=== PATIENT | male | born 1960 | race Caucasian/White ===

== ENCOUNTER 2017-10-04 15:19 | Inpatient (IN) | payer OTHER ==
[~2017-10-04] VITALS: Ht 175.3 cm; Wt 81.4 kg
[~2017-10-04 15:19] MED LIST: CIAL20TA PO; CYCL5TAB PO; IBUP-232 PO; LIDOCAINE HCL 1% PF 5 ML SYRINGE OTHER ONE; LISI2.5T3 PO; NEUR600T PO; PROPOFOL 200 MG/20 ML AMP IV ONE; RANI150 PO; ROCURONIUM INJ 50 MG/5 ML SYRINGE IV PUSH ONE; SUCCINYLCHOLINE CHLORIDE 200 MG/10 ML VIAL IV ONE; XANA1TAB2 PO
[2017-10-04] MEDS ORDERED: SODIUM CHLORIDE 0.9% FLUSH 10 ML FLUSH IV FLUSH PRN (17:15)
[2017-10-04] MEDS ORDERED: ONDANSETRON HCL 4 MG/2 ML VIAL IVP PRN (17:15)
[2017-10-04] MEDS ORDERED: oxyCODONE/ACETAMINOPHEN 5 MG/325 MG TAB PO PRN (17:15)
[2017-10-04] MEDS ORDERED: Vancomycin Consult Pharmacy 1 EA OTHER SCH (17:15)
[2017-10-04] MEDS ORDERED: NALOXONE HCL 0.4 MG/ML AMP IV PUSH PRN (17:15)
[2017-10-04] MEDS ORDERED: oxyCODONE/ACETAMINOPHEN 10 MG/325 MG TAB PO PRN (17:15)
[2017-10-04] MEDS ORDERED: MAGNESIUM HYDROXIDE SUSP 30 ML CUP PO PRN (17:15)
[2017-10-04 18:00] VITALS: BP 103/61; PULSE 87; RESP 20; TEMP 98.9; O2SAT 100
[2017-10-04] MEDS: SODIUM CHLOR 0.9% 1000 ML INJ 1,000 ML IV SCH (18:00)
[2017-10-04] MEDS ORDERED: VANCOMYCIN INJ 1,000 MG in SODIUM CHLOR 0.9% 250 ML INJ 250 ML IV ONE (18:30)
[2017-10-04] MEDS ORDERED: NICOTINE 21 MG/24 HR PATCH T-DERMAL ONE (19:15)
[2017-10-04] MEDS ORDERED: cloNIDine HCL 0.1 MG TAB PO PRN (19:15)
--- NOTE | 2017-10-04 19:44 | HHI.HP ---
[facility] Ricardo Diaz MD Admission Diagnosis Diagnoses: Travel History International Travel<30 Days: No Contact w/Intl Traveler <30 Da: No Traveled to Known Affected Are: No Sepsis Criteria SIRS Criteria (2 or more): Temp > 100.9 or < 96.8, WBC > 00543, < 4000 or > 10 % bands Sepsis Criteria (SIRS+source): Infect source susp/known History of Present Illness Mr. Dalal is a 57 -year-old male. He came into the emergency department at [facility] secondary to a left arm abscess. 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 He says approximate 7 days ago he started developing a mild infection at the arm. Infection developed about 5 days after he uses a needle. Over the course of the week there has been increasing pain, swelling, erythema, induration, and for the past 2 days patient has had a fever. Fevers are as high as 102F. At baseline she has hydradenitis suppurativa which has affected his back and right groin. The area of infection does not have the hydradenitis suppurativa. No other complaints. Review of Systems Constitutional: COMPLAINS OF: Fever, Chills, Night Sweats Eyes: DENIES: Blurred vision, Diplopia, Eye inflammation, Eye pain Ears, nose, mouth, throat: DENIES: Tinnitus, Hearing loss, Vertigo, Nasal discharge Respiratory: COMPLAINS OF: Cough, DENIES: Wheezing, Shortness of breath Cardiovascular: DENIES: Chest pain, Palpitations, Syncope, Dyspnea on Exertion Gastrointestinal: DENIES: Abdominal pain, Black stools, Bloody stools, Constipation Musculoskeletal: COMPLAINS OF: Joint pain, Stiffness, Joint Swelling, DENIES: Muscle aches Integumentary: COMPLAINS OF: Abnormal pigmentation, DENIES: Nail changes, Pruritus, Rash Hematologic/lymphatic: DENIES: Bruising, Lymphadenopathy Immunologic/allergic: DENIES: Eczema, Urticaria Neurologic: DENIES: Abnormal gait, Headache, Paresthesias Psychiatric: DENIES: Anxiety, Confusion, Hallucinations Past Family Social History Past Medical History hydradenitis suppurativa Diverticulosis Hypertension Past Surgical History Left leg, groin, and scrotal surgery secondary to hydradenitis suppurativa For abdominal laparotomies secondary to diverticulitis with rupture Reported Medications Reported Meds & Active Scripts Active Reported Ibuprofen 600 Mg Tab 600 Mg PO Q6H PRN Flexeril (Cyclobenzaprine HCl) 5 Mg Tab 5 Mg PO TID Lisinopril 2.5 Mg Tab 2.5 Mg PO DAILY Xanax (Alprazolam) 1 Mg Tab 1 Mg PO Q6H PRN Allergies: Coded Allergies: Tetracyclines (Verified Allergy, Severe, 10/04/17) ciprofloxacin (Verified Allergy, Severe, 10/04/17) doxycycline (Unverified Allergy, Severe, 03/27/17) minocycline (Unverified Allergy, Severe, 03/27/17) penicillin G (Verified Allergy, Severe, 10/04/17) tigecycline (Unverified Allergy, Severe, 03/27/17) Active Ordered Medications Administered Medications Medications (Trade) Dose Ordered Sig/Dio Route PRN Reason Start Time Stop Time Status Last Admin Dose Admin Oxycodone/ Acetaminophen (Percocet 10-325 Mg) 1 tab Q6H PRN PO PAIN SCALE 6 TO 10 10/04/17 17:15 10/04/17 18:37 Family History hydradenitis suppurativa in father Myocardial infarction in mother at age 42 Social History Heroin abuse Alcohol use Marijuana use Patient smokes about 1 pack per day Physical Exam Vital Signs Vital Signs Date Time Temp Pulse Resp B/P (MAP) Pulse Ox O2 Delivery O2 Flow Rate FiO2 10/04/17 18:00 98.9 87 20 103/61 (75) 100 Physical Exam GENERAL: NAD, A&Ox3 HEAD: Normocephalic. NECK: Supple, trachea midline. No lymphadenopathy. EYES: No scleral icterus. No injection or drainage. CARDIOVASCULAR: Regular rate and rhythm without murmurs, gallops, or rubs. RESPIRATORY: Breath sounds equal bilaterally. No accessory muscle use. GASTROINTESTINAL: Abdomen soft, non-tender, nondistended. MUSCULOSKELETAL: No cyanosis, or edema. Patient is able to move the left arm without significant joint pain, no swelling limits range of motion. SKIN: Warm and dry. Large induration and erythema at left elbow and forearm. Ulcerations last necrosis at antecubital fossa. NEURO: No focal neurological deficitis. Imaging Left upper extremity CT CONCLUSION: Soft tissue abnormalities are predominantly in the subcutaneous soft tissues with soft tissue thickening and multiple small collections of gas. There is one focal fluid collection superficial to the proximal humerus which measures 1.8 cm. Septic Shock Reassessment Septic shock perfusion: reassessment completed Caprini VTE Risk Assessment Caprini VTE Risk Assessment: Mod/High Risk (score >= 2) Caprini Risk Assessment Model Point Value = 1 Point Value = 2 Point Value = 3 Point Value = 5 Age 41-60 Minor surgery BMI > 25 kg/m2 Swollen legs Varicose veins or History of unexplained or recurrent spontaneous Oral contraceptives or hormone replacement Sepsis (< 1 month) Serious lung disease, including pneumonia (< 1 month) Abnormal pulmonary function Acute myocardial infarction Congestive heart failure (< 1 month) History of inflammatory bowel disease Medical patient at bed rest Age 61-74 Arthroscopic surgery Major open surgery (> 45 min) Laparoscopic surgery (> 45 min) Malignancy Confined to bed (> 72 hours) Immobilizing plaster cast Central venous access Age >= 75 History of VTE Family history of VTE Factor V Leiden Prothrombin [id number] Lupus anticoagulant Anticardiolipin antibodies Elevated serum homocysteine Heparin-induced thrombocytopenia Other congenital or acquired thrombophilia Stroke (< 1 month) Elective arthroplasty Hip, pelvis, or leg fracture Acute spinal cord injury (< 1 month) Prophylaxis Regimen Total Risk Factor Score Risk Level Prophylaxis Regimen 0-1 Low Early ambulation 2 Moderate Order ONE of the following: *Sequential Compression Device (SCD) *Heparin 5000 units SQ BID 3-4 Higher Order ONE of the following medications: *Heparin 5000 units SQ TID *Enoxaparin/Lovenox 40 mg SQ daily (WT < 150 kg, CrCl > 30 mL/min) *Enoxaparin/Lovenox 30 mg SQ daily (WT < 150 kg, CrCl > 10-29 mL/min) *Enoxaparin/Lovenox 30 mg SQ BID (WT < 150 kg, CrCl > 30 mL/min) AND/OR *Sequential Compression Device (SCD) 5 or more Highest Order ONE of the following medications: *Heparin 5000 units SQ TID (Preferred with Epidurals) *Enoxaparin/Lovenox 40 mg SQ daily (WT < 150 kg, CrCl > 30 mL/min) *Enoxaparin/Lovenox 30 mg SQ daily (WT < 150 kg, CrCl > 10-29 mL/min) *Enoxaparin/Lovenox 30 mg SQ BID (WT < 150 kg, CrCl > 30 mL/min) AND *Sequential Compression Device (SCD) Assessment and Plan Problem List: (1) Abscess of left arm ICD Code: L02.414 - Cutaneous abscess of left upper limb (2) Sepsis ICD Code: A41.9 - Sepsis, unspecified organism Assessment and Plan 57-year-old male admitted secondary to left arm abscess sepsis. Sepsis IV hydration Follow vital signs closely Treat infection Fever Leukocytosis Left arm abscess IV vancomycin IV Flagyl Probiotics Consults hand surgeon NPO in a.m. As needed Percocet for pain control IV drug abuse Alcohol use Monitor for withdraws Clonidine as needed for withdraws Patient will be using narcotics for pain control which should help with heroin withdrawal Patient counseled to quit Folic acid Thiamine Multivitamin Nicotine dependence Start NicoDerm She counseled to quit DVT prophylaxis SCDs Lovenox Physician Certification 2 Midnight Certification Type: Admission for Inpatient Services Order for Inpatient Services The services are ordered in accordance with Medicare regulations or non- Medicare payer requirements, as applicable. In the case of services not specified as inpatient-only, they are appropriately provided as inpatient services in accordance with the 2-midnight benchmark. Estimated LOS (days): 4 days is the estimated time the patient will need to remain in the hospital, assuming treatment plan goals are met and no additional complications. Post-Hospital Plan: Home Clark Steward MD Oct 04, 2017 19:44
[2017-10-04 20:00] VITALS: BP 95/61; PULSE 92; RESP 20; TEMP 98.3; O2SAT 98
[2017-10-04 20:39] VITALS: PULSE 92
[2017-10-04] MEDS: SODIUM CHLORIDE 0.9% FLUSH 10 ML FLUSH IV FLUSH SCH (20:55)
[2017-10-04] MEDS: ENOXAPARIN SODIUM 30 MG/0.3 ML SYRINGE SQ SCH (21:00)
[2017-10-04] MEDS ORDERED: CLINDAMYCIN INJ 900 MG in SODIUM CHLORIDE 0.9% INJ 100 ML IV SCH (21:00)
[2017-10-04] MEDS ORDERED: LIDOCAINE 1%/EPINEPHrine 1:100,000 SOLN 50 ML VIAL OTHER ONE (21:00)
[2017-10-04] MEDS ORDERED: BUPIVACAINE HCL PF 0.5% 30 ML VIAL ONE (21:12)
[2017-10-04] MEDS: metroNIDAZOLE 500 MG INJ 100 ML IV SCH (21:14)
--- NOTE | 2017-10-04 21:27 | PD.CONS ---
History of Present Illness Service Hand Surgery Consult Requested By Primary team Reason for Consult Left forearm abscess Primary Care Physician Ricardo Diaz MD Diagnoses: History of Present Illness 57 -year-old male who presented w/ a left arm abscess. Patient reports that he has injected heroin in the last week and done crack cocaine yesterday. Patient reports that this has been ongoing for several weeks. He's been having fevers at home. History from chart and per pt Past Medical History hydradenitis suppurativa Diverticulosis Hypertension Past Surgical History Left leg, groin, and scrotal surgery secondary to hydradenitis suppurativa For abdominal laparotomies secondary to diverticulitis with rupture Medications Patient denies previous outpatient medications Allergies to penicillin Social history Positive tobacco crack cocaine heroine Family history noncontributory to presenting complaint Review of Systems Review of systems otherwise noncontributory presenting complaint Past Family Social History Allergies: Coded Allergies: Tetracyclines (Verified Allergy, Severe, 10/04/17) ciprofloxacin (Verified Allergy, Severe, 10/04/17) doxycycline (Unverified Allergy, Severe, 03/27/17) minocycline (Unverified Allergy, Severe, 03/27/17) penicillin G (Verified Allergy, Severe, 10/04/17) tigecycline (Unverified Allergy, Severe, 03/27/17) Physical Exam Vital Signs Vital Signs Date Time Temp Pulse Resp B/P (MAP) Pulse Ox O2 Delivery O2 Flow Rate FiO2 10/04/17 18:00 98.9 87 20 103/61 (75) 100 Physical Exam No acute distress Alert and oriented 3 PERRLA Moist mucous membranes Skin without rash Respirations nonlabored Clear auscultation Regular Left upper extremity Patient with sinus over the cubital fossa with foul-smelling purulence Area of fluctuance excuse to extend 8 cm above and below antecubital fold Cellulitis extends custodial up the patient's arm and down the forearm Patient's elbow range of motion is roughly 30 short of full extension to 95 flexion Imaging CAT scan of the patient's left upper extremity personally reviewed by me showing gas and fluid consistent with severe forearm abscess Assessment and Plan Problem List: (1) Abscess of left arm ICD Codes: L02.414 - Cutaneous abscess of left upper limb Assessment and Plan 57-year-old male who presents with large abscess and severe cellulitis of left forearm and upper arm in the setting of IV drug abuse Discussed the risks benefits and alternative treatments Due to extent of cellulitis and fluctuance as well as appearance of gas on CT, advised pt that this is an emergent procedure Pt expresses understanding that he is at a much higher risk of emesis/ aspiration given his recent po, but agrees that this is an emergency and elects to assume those risks. All questions answered Patient expresses understanding of the risks Patient elects to assume the risks of operative incision and drainage of his infection Patient understands that he may have multiple scars over his arm, which may be unsightly, and which may need to be left open secondarily and packed daily until they close Patient also expresses understanding that the risks of surgery including loss and or severe dysfunction and deformity of his left arm Informed consent obtained Pasha Nunez MD Oct 04, 2017 21:27
[2017-10-04] MEDS ORDERED: VANCOMYCIN HCL 1000 MG VIAL ONE (21:43)
[2017-10-04] MEDS ORDERED: LIDOCAINE 2%/EPINEPHrine PF 1:200,000 20ML SDV ONE (21:44)
[2017-10-04] MEDS ORDERED: GENTAMICIN SULFATE 80 MG/2 ML VIAL ONE (21:49)
[2017-10-04] MEDS ORDERED: MEPERIDINE HCL 25 MG/ML VIAL ONE (22:42)
[2017-10-04] MEDS ORDERED: DO NOT ADM ANY ANTICOAGULANT DRUGS PRN (23:00)
[2017-10-05] VITALS (10 sets, daily range): BP systolic 96–118; BP diastolic 59–85; PULSE 79–103; RESP 16–18; TEMP 98.3–99.5; O2SAT 97–100
[2017-10-05] MEDS: oxyCODONE/ACETAMINOPHEN 5 MG/325 MG TAB PO PRN ×5 (01:06→19:51)
[2017-10-05] MEDS: SODIUM CHLOR 0.9% 1000 ML INJ 1,000 ML IV SCH ×3 (04:00→23:02)
[2017-10-05] MEDS: metroNIDAZOLE 500 MG INJ 100 ML IV SCH (04:00)
[2017-10-05] MEDS: HYDROmorphone HCL PF 2 MG/ML VIAL IV PRN ×4 (04:07→21:47)
[2017-10-05] MEDS: CLINDAMYCIN 900 MG/NS PREMIX 50 ML IV SCH ×3 (05:41→21:43)
[2017-10-05] MEDS: NICOTINE 21 MG/24 HR PATCH T-DERMAL SCH (08:26)
[2017-10-05] MEDS: THIAMINE HCL 100 MG TAB PO SCH (08:27)
[2017-10-05] MEDS: LACTOBACILLUS ACIDOPHILUS TAB PO SCH ×3 (08:27→18:24)
[2017-10-05] MEDS: MULTIVITAMIN TAB PO SCH (08:27)
[2017-10-05] MEDS: FOLIC ACID 1 MG TAB PO SCH (08:27)
[2017-10-05] MEDS: REMOVE OLD PATCH T-DERMAL SCH (08:27)
[2017-10-05] MEDS: SODIUM CHLORIDE 0.9% FLUSH 10 ML FLUSH IV FLUSH SCH ×2 (08:28→21:00)
[2017-10-05 12:01] LABS: ALT (GPT) 45 U/L (12-78)
[2017-10-05 12:04] LABS: ALBUMIN 2.4 GM/DL (3.4-5.0); ALKALINE PHOSPHATASE 117 U/L (45-117); AST (GOT) 40 U/L (15-37); BICARBONATE 22.6 MEQ/L (21.0-32.0); BLOOD UREA NITROGEN 17 MG/DL (7-18); CALCIUM 8.1 MG/DL (8.5-10.1); CHLORIDE 107 MEQ/L (98-107); CREATININE 1.12 MG/DL (0.60-1.30); GLOMERULAR FILTRATION RATE 68 ML/MIN (>89); GLUCOSE,RANDOM 109 MG/DL (74-106); RANDOM VANCOMYCIN 7.5 COMMENT; SODIUM (NA) 137 MEQ/L (136-145); TOTAL BILIRUBIN ADULT 0.4 MG/DL (0.2-1.0)
[2017-10-05 12:07] LABS: BASOPHIL % 0.1 % (0.0-2.0); EOSINOPHIL % 0.2 % (0.0-4.0); HEMATOCRIT 29.6 % (39.0-51.0); HEMOGLOBIN 10.3 GM/DL (13.0-17.0); LYMPH % 3.7 % (9.0-44.0); LYMPHOCYTE # 0.8 TH/MM3 (1.0-4.8); MEAN CELL VOLUME 94.4 FL (80.0-100.0); MEAN CORPUSCULAR HEMOGLOBIN 32.7 PG (27.0-34.0); MEAN CORPUSCULAR HGB CONC 34.7 % (32.0-36.0); MEAN PLATELET VOLUME 9.6 FL (7.0-11.0); MONO % 5.6 % (0.0-8.0); MONOCYTE # 1.2 TH/MM3 (0-0.9); NEUT % 90.4 % (16.0-70.0); PLATELET COUNT 217 TH/MM3 (150-450); RED BLOOD COUNT 3.14 MIL/MM3 (4.50-5.90); WHITE BLOOD COUNT 22.2 TH/MM3 (4.0-11.0)
--- NOTE | 2017-10-05 12:13 | PD.OP ---
Operative Report Date of Surgery: Oct 04, 2017 Preoperative Diagnosis: (1) Abscess of left arm Postoperative Diagnosis: (1) Abscess of left arm Procedure: Incision and drainage and washout of left forearm abscess Surgeon: Pasha Aburto [employer] Signal Technician(s): . Operation and Findings: Patient is a 57-year-old male with a history of IV drug abuse, reports that he began to have steadily increasing pain swelling redness and heat overlying his left antecubital fossa and lateral arm roughly 2 weeks ago. The patient presented with a severe left forearm infection to the [facility] emergency department. He was transferred to [facility]. The patient reported exquisite pain of the area. His white blood cell count was 32. There was subcutaneous gas on CAT scan. Risks benefits and alternative treatments were discussed with the patient. All questions were answered. Patient expressed understanding of those risks. Informed consent was obtained. The patient was marked the preoperative holding day. Patient was taken to the operating room. All pressure points were padded. A surgical timeout was performed. After the smooth induction of general anesthesia, the surgical site was prepped and draped in the usual sterile fashion. The patient had already received antibiotics in the emergency department. A 2 cm incision was made over the lateral elbow in the area of the most fluctuance. Copious foul-smelling purulence was immediately encountered. This was sent for culture 3. Extensive loculations were broken up digitally. Great care was taken medially over the anterior cubital fossa given the proximity of vital structures. No vital structures were exposed. The abscess was extensive and measured roughly 20 cm in proximal distal dimension by 10 cm from the before meals fossa to the posterior elbow. The abscess cavity extended down to deep fascia closed anteriorly and posteriorly superiorly and inferiorly. The did not appear to be fascial necrosis. The wound was irrigated copiously with antibiotic irrigation until the affluent rash clear. Hemostasis was assured. The wound was packed with iodoform gauze and dressed with dry gauze and AVD pad and Kerlix rolls. All needle sponge and instrument counts were correct 2. The patient arrive stable and doing well to the PACU. Pasha Aburto MD Oct 05, 2017 12:13
[2017-10-05] MEDS ORDERED: MORPHINE SULFATE 2 MG/ML INJ IM PRN (12:45)
--- NOTE | 2017-10-05 13:29 | HHI.PR ---
Subjective Remarks Pain improved. No new complaints. No NT of L hand Objective Vital Signs Date Time Temp Pulse Resp B/P (MAP) Pulse Ox O2 Delivery O2 Flow Rate FiO2 10/05/17 08:00 99.3 90 18 96/67 (77) 100 10/05/17 06:41 20 10/05/17 04:37 20 10/05/17 04:00 99.5 101 18 109/59 (76) 97 10/05/17 01:00 99 10/05/17 00:00 98.3 95 16 111/65 (80) 100 10/04/17 23:00 101 14 111/73 (86) 99 Room Air 10/04/17 22:45 109 20 119/81 (94) 98 Room Air 10/04/17 22:36 98.7 116 20 126/86 (99) 100 Nasal Cannula 2 10/04/17 20:00 98.3 92 20 95/61 (72) 98 10/04/17 18:00 98.9 87 20 103/61 (75) 100 I/O 10/04/17 10/04/17 10/04/17 10/05/17 10/05/17 10/05/17 07:00 15:00 23:00 07:00 15:00 23:00 Intake Total 106 ml 1080 ml Output Total 320 ml Balance 106 ml 760 ml Intake Oral 480 ml IV Total 106 ml Other 600 ml Output Urine Total 300 ml Estimated Blood Loss 20 ml # Bowel Movements 0 Result Diagram: 10/05/17 1051 10/05/17 1051 Objective Remarks Afebrile overnight Dressing and packing removed Erythema much improved though still significant No signs necrosis Still very tender, though much less SILT distally Full AROM Cavity irrigated with betadine, followed by saline, at bedside Iodoform packing replaced Assessment and Plan Problem List: (1) Abscess of left arm ICD Codes: L02.414 - Cutaneous abscess of left upper limb Assessment and Plan 57-year-old male who presents with large abscess and severe cellulitis of left forearm and upper arm in the setting of IV drug abuse Pt still with severe infection though much improved Nursing to change packing tid Please remove packing, have pt soak elbow/incision in a basin with warm soapy water with betadine 1:1 for ~10 mins, then replace packing and cover with dry gauze Pasha Nunez MD Oct 05, 2017 13:29
[2017-10-05] MEDS ORDERED: VANCOMYCIN 1,500 MG/NS 500 ML IV ONE ×2 (15:00)
[2017-10-05] MEDS: AZTREONAM INJ 2,000 MG in SODIUM CHLORIDE 0.9% INJ 100 ML IV SCH (18:24)
--- NOTE | 2017-10-05 18:44 | MB ---
cc: RAFAEL MILES MD DATE OF CONSULTATION 10/05/[address] Nichole REASON FOR CONSULTATION IVDU, status post I&D of left arm abscess. ALLERGIC TO MULTIPLE ANTIBIOTICS. HISTORY OF PRESENT ILLNESS This is a 57-year-old white male who developed an abscess of his left arm at the left elbow. The patient injected heroin into the elbow and subsequently developed swelling and erythema. He presented to the emergency department and a CT scan of the arm showed soft tissue abnormality with soft tissue thickening and multiple small collections of gas and one fluid collection superficial to the proximal humerus measuring approximately 1.8 cm. The patient was evaluated by plastic surgery. He underwent I & D and cultures were taken. His white count was elevated at 32.2. The cultures so far, preliminary, have gram-negative rods. Blood cultures from 10/04 have no growth. Cultures from a surgical procedure on 10/04 are pending. PAST MEDICAL HISTORY 1. Hidradenitis suppurativa 2. Hypertension, 3. Diverticulosis, 4. History of surgery for hidradenitis at the left groin. ALLERGIES DOXYCYCLINE CIPROFLOXACIN TETRACYCLINE MINOCYCLINE PENICILLIN G TIGECYCLINE MEDICATIONS 1. Vancomycin. 2. Clindamycin. 3. Lovenox. 4. Percocet 5 5. Dilaudid p.r.n. 6. Lactinex 7. Theragran. 8. Folate 9. Vitamin B1. 10. Nicotine patch. SOCIAL HISTORY No alcohol use. The patient smokes 3/4 pack of cigarettes a day. Positive IV drug use in the form of heroin. FAMILY HISTORY Noncontributory. REVIEW OF SYSTEMS Negative on 10-point review. PHYSICAL EXAMINATION GENERAL: This is a well-developed male who is in no acute distress. He is awake, alert and oriented. VITAL SIGNS: Temperature 99.2, BP 118/85, respirations 18, heart rate 85. HEENT: Head atraumatic. Extraocular movements grossly intact. Pupils reactive to light. No icterus. Oropharynx moist mucosa without lesions. NECK: Supple without adenopathy. LUNGS: Clear breath sounds HEART: Regular S1 and S2. No murmurs, rubs or gallops. ABDOMEN: Bowel sounds present, soft, no tenderness appreciated. RECTAL: Not performed. EXTREMITIES: Left arm is wrapped in a surgical dressing. There is purulence visible coming through the gauze dressing. The gauze on the wound is saturated. The left elbow region is swollen. No significant visible erythema. The remaining extremities have no clubbing, cyanosis or edema. SKIN: No diffuse rash. NEUROLOGIC: No gross focal findings. PSYCHIATRIC: Patient is calm and cooperative. LABORATORY DATA WBC 22.2, platelets 217, 90% neutrophils. Creatinine 1.12, estimated GFR 68, sodium 137. Liver function tests include AST of 40, ALT 45. IMPRESSION 1. Abscess of the left elbow from injectable IV drug use. Culture preliminary has gram-negative bacteria. 2. MULTIPLE ANTIBIOTIC ALLERGIES RECOMMENDATIONS 1. Continue clindamycin 2. Add Azactam 3. Follow the cultures. Antibiotic adjustment will be made once further information on the cultures becomes available. Thank you this consultation. Rafael Miles MD FD/ /4:01 PM /6:29 PM
[2017-10-05] MEDS ORDERED: POVIDONE IODINE 10% SOLN 118 ML BOTTLE TOPICAL ONE (20:00)
[2017-10-05] MEDS: ENOXAPARIN SODIUM 30 MG/0.3 ML SYRINGE SQ SCH (21:44)
[2017-10-06] VITALS (7 sets, daily range): BP systolic 119–151; BP diastolic 61–99; PULSE 76–97; RESP 18–20; TEMP 98–99.6; O2SAT 94–99
[2017-10-06] MEDS: HYDROmorphone HCL PF 2 MG/ML VIAL IV PRN ×5 (01:50→20:44)
[2017-10-06] MEDS: AZTREONAM INJ 2,000 MG in SODIUM CHLORIDE 0.9% INJ 100 ML IV SCH ×3 (02:00→18:03)
[2017-10-06] MEDS: CLINDAMYCIN 900 MG/NS PREMIX 50 ML IV SCH ×3 (04:20→20:44)
[2017-10-06] MEDS: oxyCODONE/ACETAMINOPHEN 5 MG/325 MG TAB PO PRN ×2 (04:20→08:27)
--- NOTE | 2017-10-06 07:56 | HHI.PR ---
Subjective Remarks Late entry for 10/05/2017. Patient was seen in the morning on 10/05/2017. Follow-up for left upper limb sepsis. Patient is currently doing well. However he complains of significant drainage and burning sensation. He would like to have the dressing change. No fever or chills. Objective Vitals Vital Signs Date Time Temp Pulse Resp B/P (MAP) Pulse Ox O2 Delivery O2 Flow Rate FiO2 10/06/17 04:00 Room Air 10/06/17 04:00 99.6 81 18 119/61 (80) 96 10/06/17 03:47 78 10/06/17 00:00 98.8 90 18 135/90 (105) 94 10/06/17 00:00 Room Air 10/05/17 23:45 84 10/05/17 20:00 Room Air 10/05/17 20:00 98.8 84 16 112/82 (92) 99 10/05/17 19:41 88 10/05/17 16:00 83 10/05/17 16:00 99.1 85 18 117/85 (96) 100 10/05/17 12:00 99.2 85 18 118/85 (96) 99 10/05/17 12:00 84 10/05/17 08:00 99.3 90 18 96/67 (77) 100 10/05/17 08:00 79 I/O 10/05/17 10/05/17 10/05/17 10/06/17 10/06/17 10/06/17 07:00 15:00 23:00 07:00 15:00 23:00 Intake Total 1080 ml 50 ml 990 ml 950 ml Output Total 320 ml Balance 760 ml 50 ml 990 ml 950 ml Intake Oral 480 ml 800 ml IV Total 50 ml 990 ml 150 ml Other 600 ml Output Urine Total 300 ml Estimated Blood Loss 20 ml # Voids 6 # Bowel Movements 0 1 Result Diagram: 10/05/17 1051 10/05/17 1051 Objective Remarks GENERAL: Alert, oriented 3, NAD. SKIN: Warm and dry. HEAD: Normocephalic. EYES: No scleral icterus. No injection or drainage. NECK: Supple, trachea midline. No JVD or lymphadenopathy. CARDIOVASCULAR: Regular rate and rhythm without murmurs, gallops, or rubs. RESPIRATORY: Breath sounds equal bilaterally. No accessory muscle use. GASTROINTESTINAL: Abdomen soft, non-tender, nondistended. MUSCULOSKELETAL: No cyanosis, or edema. Left upper extremity wrapped in dressing. There is drainage visible through dressing. BACK: Nontender without obvious deformity. No CVA tenderness. Procedures 10/04/2017 Incision and drainage and washout of left forearm abscess A/P Problem List: (1) Abscess of left arm ICD Code: L02.414 - Cutaneous abscess of left upper limb (2) Sepsis ICD Code: A41.9 - Sepsis, unspecified organism Assessment and Plan Mr. Dalal is a 57-year-old male with a history of IV drug use who presented to the emergency department on 10/04/2017 due to left arm abscess. Patient underwent I&D on the same day. - Left arm abscess - Plastic surgery/hand surgery following. Status post IND. - Patient was on Flagyl, clindamycin, vancomycin. Discontinued Flagyl. - We'll consult infectious disease for further input since patient is allergic to multiple antibiotics. - Dilaudid 1 mg every 3 hours for breakthrough pain., Percocet when necessary. - IV drug abuse - Alcohol abuse - Continue folic acid, thiamine. Full code. Lovenox. Discussed with Dr. Aburto. America Nichole DO Oct 06, 2017 7:56 am
[2017-10-06] MEDS: THIAMINE HCL 100 MG TAB PO SCH (08:26)
[2017-10-06] MEDS: FOLIC ACID 1 MG TAB PO SCH (08:26)
[2017-10-06] MEDS: NICOTINE 21 MG/24 HR PATCH T-DERMAL SCH (08:27)
[2017-10-06] MEDS: REMOVE OLD PATCH T-DERMAL SCH (08:27)
[2017-10-06] MEDS: LACTOBACILLUS ACIDOPHILUS TAB PO SCH ×3 (08:27→18:03)
[2017-10-06] MEDS: SODIUM CHLORIDE 0.9% FLUSH 10 ML FLUSH IV FLUSH SCH ×2 (08:27→20:44)
[2017-10-06] MEDS: MULTIVITAMIN TAB PO SCH (08:27)
[2017-10-06] MEDS: SODIUM CHLOR 0.9% 1000 ML INJ 1,000 ML IV SCH (10:09)
[2017-10-06] MEDS ORDERED: ACETAMINOPHEN 500 MG CPLT PO PRN (10:30)
[2017-10-06] MEDS: oxyCODONE/ACETAMINOPHEN 10 MG/325 MG TAB PO PRN ×2 (12:56→18:39)
[2017-10-06] MEDS ORDERED: LIDOCAINE 1%/EPINEPHrine 1:100,000 SOLN 50 ML VIAL OTHER ONE (13:00)
--- NOTE | 2017-10-06 14:20 | HHI.PR ---
Subjective Remarks Follow-up for left upper limb sepsis. Patient reports less drainage from his left elbow IND area. No fever or chills. Tolerating diet well. Objective Vitals Vital Signs Date Time Temp Pulse Resp B/P (MAP) Pulse Ox O2 Delivery O2 Flow Rate FiO2 10/06/17 12:00 98.5 76 19 124/88 (100) 99 10/06/17 08:00 76 10/06/17 08:00 98.0 76 19 123/89 (100) 99 10/06/17 07:00 Room Air 10/06/17 04:00 Room Air 10/06/17 04:00 99.6 81 18 119/61 (80) 96 10/06/17 03:47 78 10/06/17 00:00 98.8 90 18 135/90 (105) 94 10/06/17 00:00 Room Air 10/05/17 23:45 84 10/05/17 20:00 Room Air 10/05/17 20:00 98.8 84 16 112/82 (92) 99 10/05/17 19:41 88 10/05/17 16:00 83 10/05/17 16:00 99.1 85 18 117/85 (96) 100 I/O 10/05/17 10/05/17 10/05/17 10/06/17 10/06/17 10/06/17 07:00 15:00 23:00 07:00 15:00 23:00 Intake Total 1080 ml 50 ml 990 ml 950 ml Output Total 320 ml Balance 760 ml 50 ml 990 ml 950 ml Intake Oral 480 ml 800 ml IV Total 50 ml 990 ml 150 ml Other 600 ml Output Urine Total 300 ml Estimated Blood Loss 20 ml # Voids 6 # Bowel Movements 0 1 Result Diagram: 10/05/17 1051 10/05/17 1051 Objective Remarks GENERAL: Alert, oriented 3, NAD. SKIN: Warm and dry. HEAD: Normocephalic. EYES: No scleral icterus. No injection or drainage. NECK: Supple, trachea midline. No JVD or lymphadenopathy. CARDIOVASCULAR: Regular rate and rhythm without murmurs, gallops, or rubs. RESPIRATORY: Breath sounds equal bilaterally. No accessory muscle use. GASTROINTESTINAL: Abdomen soft, non-tender, nondistended. MUSCULOSKELETAL: No cyanosis, or edema. Left upper extremity wrapped in dressing. There is drainage visible through dressing. BACK: Nontender without obvious deformity. No CVA tenderness. Procedures 10/04/2017 Incision and drainage and washout of left forearm abscess A/P Problem List: (1) Abscess of left arm ICD Code: L02.414 - Cutaneous abscess of left upper limb (2) Sepsis ICD Code: A41.9 - Sepsis, unspecified organism Assessment and Plan Mr. Dalal is a 57-year-old male with a history of IV drug use who presented to the emergency department on 10/04/2017 due to left arm abscess. Patient underwent I&D on the same day. - Left arm abscess - Plastic surgery/hand surgery following. Status post IND. - Patient is currently on clindamycin, aztreonam and vancomycin. - Dilaudid 1 mg every 3 hours for breakthrough pain., Percocet when necessary. - Patient will likely undergo another IND by plastic surgeon Dr. Aburto. - IV drug abuse - Alcohol abuse - Continue folic acid, thiamine. Full code. Lovenox. Discussed with Dr. Aburto. America Nichole DO Oct 06, 2017 14:20
[2017-10-06] MEDS: VANCOMYCIN 1,500 MG/NS 500 ML IV SCH ×2 (14:53)
--- NOTE | 2017-10-06 20:17 | HHI.PR ---
Subjective Remarks Pain improved slightly, still with purulent discharge Objective Vital Signs Date Time Temp Pulse Resp B/P (MAP) Pulse Ox O2 Delivery O2 Flow Rate FiO2 10/06/17 16:00 98.5 97 20 122/76 (91) 97 10/06/17 12:00 98.5 76 19 124/88 (100) 99 10/06/17 08:00 76 10/06/17 08:00 98.0 76 19 123/89 (100) 99 10/06/17 07:00 Room Air 10/06/17 04:00 Room Air 10/06/17 04:00 99.6 81 18 119/61 (80) 96 10/06/17 03:47 78 10/06/17 00:00 98.8 90 18 135/90 (105) 94 10/06/17 00:00 Room Air 10/05/17 23:45 84 I/O 10/05/17 10/05/17 10/05/17 10/06/17 10/06/17 10/06/17 07:00 15:00 23:00 07:00 15:00 23:00 Intake Total 1080 ml 50 ml 990 ml 950 ml 150 ml 2330 ml Output Total 320 ml Balance 760 ml 50 ml 990 ml 950 ml 150 ml 2330 ml Intake Oral 480 ml 800 ml 480 ml IV Total 50 ml 990 ml 150 ml 150 ml 1850 ml Other 600 ml Output Urine Total 300 ml Estimated Blood Loss 20 ml # Voids 6 6 # Bowel Movements 0 1 3 Result Diagram: 10/05/17 1051 10/05/17 1051 Objective Remarks Afebrile overnight Dressing and packing removed Erythema not much improved, maybe slightly No signs necrosis swift tender, though less SILT distally Full AROM Moderate purulence expressed repeatedly Assessment and Plan Problem List: (1) Abscess of left arm ICD Codes: L02.414 - Cutaneous abscess of left upper limb Assessment and Plan 57-year-old male POD 2 s/p L arm I and D, with insufficient improvement and likely inadequate drainage of lateral/more dependent aspect of the initial abscess cavity Discussed risks/benefits/alternatives w/ pt Pt elected to assume the risks of bedside additional drainage incision Informed consent obtained Well tolerated One iodoform wick placed in each incision Nursing to change packing tid Please remove packing, have pt soak elbow/incision in a basin with warm soapy water with betadine 1:1 for ~10 mins, then replace packing and cover with dry gauze Pasha Nunez MD Oct 06, 2017 20:17
[2017-10-06] MEDS: ENOXAPARIN SODIUM 30 MG/0.3 ML SYRINGE SQ SCH (20:44)
[2017-10-07 00:14] VITALS: BP 154/98; PULSE 94; RESP 18; TEMP 98.6; O2SAT 99
[2017-10-07] MEDS: oxyCODONE/ACETAMINOPHEN 10 MG/325 MG TAB PO PRN ×5 (00:35→20:35)
[2017-10-07] MEDS: SODIUM CHLOR 0.9% 1000 ML INJ 1,000 ML IV SCH ×2 (00:48→09:39)
[2017-10-07] MEDS: HYDROmorphone HCL PF 2 MG/ML VIAL IV PRN ×5 (02:52→22:15)
[2017-10-07] MEDS: AZTREONAM INJ 2,000 MG in SODIUM CHLORIDE 0.9% INJ 100 ML IV SCH ×3 (02:52→18:44)
[2017-10-07 04:00] VITALS: BP 145/83; PULSE 82; RESP 20; TEMP 98.9; O2SAT 98
[2017-10-07] MEDS: CLINDAMYCIN 900 MG/NS PREMIX 50 ML IV SCH ×3 (05:42→20:36)
[2017-10-07 07:02] LABS: AUTOMATED NEUTROPHIL # 5.4 TH/MM3 (1.8-7.7); BASOPHIL # 0.1 TH/MM3 (0-0.2); BASOPHIL % 0.8 % (0.0-2.0); EOSINOPHIL # 0.1 TH/MM3 (0-0.4); EOSINOPHIL % 1.2 % (0.0-4.0); HEMATOCRIT 31.3 % (39.0-51.0); LYMPH % 17.2 % (9.0-44.0); LYMPHOCYTE # 1.4 TH/MM3 (1.0-4.8); MEAN CELL VOLUME 92.7 FL (80.0-100.0); MEAN CORPUSCULAR HEMOGLOBIN 32.7 PG (27.0-34.0); MEAN CORPUSCULAR HGB CONC 35.2 % (32.0-36.0); MEAN PLATELET VOLUME 9.9 FL (7.0-11.0); MONO % 13.2 % (0.0-8.0); MONOCYTE # 1.1 TH/MM3 (0-0.9); NEUT % 67.6 % (16.0-70.0); PLATELET COUNT 267 TH/MM3 (150-450); RED BLOOD COUNT 3.37 MIL/MM3 (4.50-5.90); RED CELL DISTRIBUTION WIDTH 13.9 % (11.6-17.2)
[2017-10-07 07:16] LABS: BICARBONATE 21.8 MEQ/L (21.0-32.0); CALCIUM 7.9 MG/DL (8.5-10.1); CREATININE 0.6 MG/DL (0.60-1.30)
[2017-10-07 08:00] VITALS: BP 153/91; PULSE 76; RESP 18; TEMP 97.6; O2SAT 98
[2017-10-07] MEDS: SODIUM CHLORIDE 0.9% FLUSH 10 ML FLUSH IV FLUSH SCH ×2 (09:00→20:39)
[2017-10-07] MEDS: REMOVE OLD PATCH T-DERMAL SCH (09:00)
[2017-10-07] MEDS: NICOTINE 21 MG/24 HR PATCH T-DERMAL SCH (09:27)
[2017-10-07] MEDS: FOLIC ACID 1 MG TAB PO SCH (09:28)
[2017-10-07] MEDS: LACTOBACILLUS ACIDOPHILUS TAB PO SCH ×3 (09:28→16:23)
[2017-10-07] MEDS: THIAMINE HCL 100 MG TAB PO SCH (09:28)
[2017-10-07] MEDS: MULTIVITAMIN TAB PO SCH (09:29)
[2017-10-07 12:00] VITALS: BP 161/94; PULSE 68; RESP 18; TEMP 98.2; O2SAT 98
[2017-10-07] MEDS: VANCOMYCIN 1,500 MG/NS 500 ML IV SCH ×2 (15:21)
[2017-10-07 16:00] VITALS: BP 166/87; PULSE 71; RESP 18; TEMP 98.6; O2SAT 97
--- NOTE | 2017-10-07 17:13 | HHI.PR ---
Subjective Remarks Much improved in all regards Objective Vital Signs Date Time Temp Pulse Resp B/P (MAP) Pulse Ox O2 Delivery O2 Flow Rate FiO2 10/07/17 16:00 98.6 71 18 166/87 (113) 97 10/07/17 12:00 98.2 68 18 161/94 (116) 98 10/07/17 09:30 Room Air 10/07/17 08:00 97.6 76 18 153/91 (111) 98 10/07/17 04:00 98.9 82 20 145/83 (103) 98 10/07/17 04:00 Room Air 10/07/17 00:14 98.6 94 18 154/98 (116) 99 10/07/17 00:00 Room Air 10/06/17 20:00 Room Air 10/06/17 20:00 99.0 80 20 151/99 (116) 98 I/O 10/06/17 10/06/17 10/06/17 10/07/17 10/07/17 10/07/17 07:00 15:00 23:00 07:00 15:00 23:00 Intake Total 950 ml 150 ml 2380 ml 1100 ml Balance 950 ml 150 ml 2380 ml 1100 ml Intake Oral 800 ml 480 ml 500 ml IV Total 150 ml 150 ml 1900 ml 600 ml # Voids 6 6 3 # Bowel Movements 1 3 Result Diagram: 10/07/17 0515 10/07/17 0515 Objective Remarks Afebrile overnight Dressing and packing removed Much improved Erythema resolving Minimal pus on packing change Assessment and Plan Problem List: (1) Abscess of left arm ICD Codes: L02.414 - Cutaneous abscess of left upper limb Assessment and Plan 57-year-old male POD 3 s/p L arm I and D One iodoform wick placed in each incision Nursing to change packing tid Please remove packing, have pt soak elbow/incision in a basin with warm soapy water with betadine 1:1 for ~10 mins, then replace packing and cover with dry gauze Abx/discharge planning tomorrow per primary DeCesare,Pasha Carter MD Oct 07, 2017 17:13
--- NOTE | 2017-10-07 19:35 | HHI.PR ---
Subjective Remarks Follow-up for left upper limb sepsis. Patient is doing well. RN changing dressing at the time of this interview. Patient complains of inadequate pain control. No fever, chills. Objective Vitals Vital Signs Date Time Temp Pulse Resp B/P (MAP) Pulse Ox O2 Delivery O2 Flow Rate FiO2 10/07/17 16:00 98.6 71 18 166/87 (113) 97 10/07/17 12:00 98.2 68 18 161/94 (116) 98 10/07/17 09:30 Room Air 10/07/17 08:00 97.6 76 18 153/91 (111) 98 10/07/17 04:00 98.9 82 20 145/83 (103) 98 10/07/17 04:00 Room Air 10/07/17 00:14 98.6 94 18 154/98 (116) 99 10/07/17 00:00 Room Air 10/06/17 20:00 Room Air 10/06/17 20:00 99.0 80 20 151/99 (116) 98 I/O 10/06/17 10/06/17 10/06/17 10/07/17 10/07/17 10/07/17 07:00 15:00 23:00 07:00 15:00 23:00 Intake Total 950 ml 150 ml 2380 ml 1100 ml 980 ml Balance 950 ml 150 ml 2380 ml 1100 ml 980 ml Intake Oral 800 ml 480 ml 500 ml 480 ml IV Total 150 ml 150 ml 1900 ml 600 ml 500 ml # Voids 6 6 3 3 # Bowel Movements 1 3 Result Diagram: 10/07/17 0515 10/07/17 0515 Objective Remarks GENERAL: Alert, oriented 3, NAD. SKIN: Warm and dry. HEAD: Normocephalic. EYES: No scleral icterus. No injection or drainage. NECK: Supple, trachea midline. No JVD or lymphadenopathy. CARDIOVASCULAR: Regular rate and rhythm without murmurs, gallops, or rubs. RESPIRATORY: Breath sounds equal bilaterally. No accessory muscle use. GASTROINTESTINAL: Abdomen soft, non-tender, nondistended. MUSCULOSKELETAL: No cyanosis, or edema. Left upper extremity wrapped in dressing. There is drainage visible through dressing. BACK: Nontender without obvious deformity. No CVA tenderness. Procedures 10/04/2017 Incision and drainage and washout of left forearm abscess A/P Problem List: (1) Abscess of left arm ICD Code: L02.414 - Cutaneous abscess of left upper limb (2) Sepsis ICD Code: A41.9 - Sepsis, unspecified organism Assessment and Plan Mr. Dalal is a 57-year-old male with a history of IV drug use who presented to the emergency department on 10/04/2017 due to left arm abscess. Patient underwent I&D on the same day. - Left arm abscess - Plastic surgery/hand surgery following. Status post IND. - Patient is currently on clindamycin, aztreonam and vancomycin. - Dilaudid 1 mg every 3 hours for breakthrough pain., Percocet when necessary. - Possible discharge on 10/08/2017. Will discuss with ID regarding outpatient abx. Perhaps Bactrim for 2 weeks. Pt is allergic to Cipro - Culture growing. Enterobacter pansensitive. - IV drug abuse - Alcohol abuse - Continue folic acid, thiamine. Full code. Lovenox. America Nichole DO Oct 07, 2017 19:35
[2017-10-07 20:00] VITALS: BP 143/97; PULSE 72; RESP 18; TEMP 99; O2SAT 98
[2017-10-07] MEDS: ENOXAPARIN SODIUM 30 MG/0.3 ML SYRINGE SQ SCH (20:36)
[2017-10-08] VITALS: BP 166/98; PULSE 77; RESP 19; TEMP 97.8; O2SAT 100
[2017-10-08] MEDS: oxyCODONE/ACETAMINOPHEN 10 MG/325 MG TAB PO PRN ×3 (00:24→10:20)
[2017-10-08] MEDS: AZTREONAM INJ 2,000 MG in SODIUM CHLORIDE 0.9% INJ 100 ML IV SCH ×2 (02:11→10:20)
[2017-10-08] MEDS: HYDROmorphone HCL PF 2 MG/ML VIAL IV PRN ×2 (02:12→07:13)
[2017-10-08 04:00] VITALS: BP 167/97; PULSE 68; RESP 18; TEMP 98.6; O2SAT 98
[2017-10-08] MEDS: CLINDAMYCIN 900 MG/NS PREMIX 50 ML IV SCH (04:38)
[2017-10-08 08:00] VITALS: BP 154/89; PULSE 67; RESP 16; TEMP 98.3; O2SAT 97
[2017-10-08] MEDS: NICOTINE 21 MG/24 HR PATCH T-DERMAL SCH (08:28)
[2017-10-08] MEDS: LACTOBACILLUS ACIDOPHILUS TAB PO SCH ×2 (08:28→12:57)
[2017-10-08] MEDS: MULTIVITAMIN TAB PO SCH (08:28)
[2017-10-08] MEDS: FOLIC ACID 1 MG TAB PO SCH (08:28)
[2017-10-08] MEDS: REMOVE OLD PATCH T-DERMAL SCH (08:28)
[2017-10-08] MEDS: THIAMINE HCL 100 MG TAB PO SCH (08:28)
[2017-10-08] MEDS: SODIUM CHLORIDE 0.9% FLUSH 10 ML FLUSH IV FLUSH SCH (08:31)
--- NOTE | 2017-10-08 11:11 | HHI.IDPN ---
Note Infectious Disease Note Patient notes pain in his left arm but no other complaints. Afebrile. Wound culture has Enterobacter. PAST MEDICAL HISTORY 1. Hidradenitis suppurativa 2. Hypertension, 3. Diverticulosis, 4. History of surgery for hidradenitis at the left groin. ALLERGIES DOXYCYCLINE CIPROFLOXACIN TETRACYCLINE MINOCYCLINE PENICILLIN G TIGECYCLINE ANTIBIOTICS: 1. Vancomycin. 2. Clindamycin. 3. Aztreonam. SOCIAL HISTORY No alcohol use. The patient smokes 3/4 pack of cigarettes a day. Positive IV drug use in the form of heroin. OBJECTIVE: Vital Signs Date Time Temp Pulse Resp B/P (MAP) Pulse Ox O2 Delivery O2 Flow Rate FiO2 10/08/17 08:49 Room Air 10/08/17 08:00 98.3 67 16 154/89 (110) 97 10/08/17 04:00 98.6 68 18 167/97 (120) 98 10/08/17 04:00 Room Air 10/08/17 00:00 97.8 77 19 166/98 (120) 100 10/08/17 00:00 Room Air 10/07/17 20:00 Room Air 10/07/17 20:00 99.0 72 18 143/97 (112) 98 10/07/17 16:00 98.6 71 18 166/87 (113) 97 10/07/17 12:00 98.2 68 18 161/94 (116) 98 Laboratory Tests Test 10/07/17 05:15 White Blood Count 8.0 TH/MM3 Red Blood Count 3.37 MIL/MM3 Hemoglobin 11.0 GM/DL Hematocrit 31.3 % Mean Corpuscular Volume 92.7 FL Mean Corpuscular Hemoglobin 32.7 PG Mean Corpuscular Hemoglobin Concent 35.2 % Red Cell Distribution Width 13.9 % Platelet Count 267 TH/MM3 Mean Platelet Volume 9.9 FL Neutrophils (%) (Auto) 67.6 % Lymphocytes (%) (Auto) 17.2 % Monocytes (%) (Auto) 13.2 % Eosinophils (%) (Auto) 1.2 % Basophils (%) (Auto) 0.8 % Neutrophils # (Auto) 5.4 TH/MM3 Lymphocytes # (Auto) 1.4 TH/MM3 Monocytes # (Auto) 1.1 TH/MM3 Eosinophils # (Auto) 0.1 TH/MM3 Basophils # (Auto) 0.1 TH/MM3 CBC Comment DIFF FINAL Differential Comment Hematology Comments Laboratory Tests Test 10/07/17 05:15 Blood Urea Nitrogen 8 MG/DL Creatinine 0.60 MG/DL Random Glucose 78 MG/DL Calcium Level 7.9 MG/DL Sodium Level 137 MEQ/L Potassium Level 3.8 MEQ/L Chloride Level 108 MEQ/L Carbon Dioxide Level 21.8 MEQ/L Anion Gap 7 MEQ/L Estimat Glomerular Filtration Rate 139 ML/MIN PHYSICAL EXAMINATION GENERAL: No acute distress. He is awake, alert and oriented. HEENT: Head atraumatic. Extraocular movements grossly intact. Pupils reactive to light. No icterus. Oropharynx moist mucosa without lesions. NECK: Supple without adenopathy. LUNGS: Clear breath sounds HEART: Regular S1 and S2. No murmurs, rubs or gallops. ABDOMEN: Bowel sounds present, soft. EXTREMITIES: Left arm is wrapped in a surgical dressing. Less swelling. Decreased drainage. Able to flex elbow. SKIN: No diffuse rash. NEUROLOGIC: No gross focal findings. PSYCHIATRIC: Calm and cooperative. IMPRESSION 1. Abscess of the left elbow from injectable IV drug use. Post I&D. Culture has Enterobacter cloacae. 2. MULTIPLE ANTIBIOTIC ALLERGIES RECOMMENDATIONS 1. Stop clindamycin 2. Stop Azactam 3. Start PO Bactrim 1 DS BID. D/W Dr. Nichole. Okay to discharge on PO Bactrim x 2 weeks from my standpoint. Patrick Davis MD Oct 08, 2017 11:11
[2017-10-08] MEDS ORDERED: SULFAMETHOXAZOLE-TRIMETHOPRIM DS 800-160 MG TAB PO SCH (11:15)
--- NOTE | 2017-10-08 11:28 | HHI.FF ---
Face to Face Verification Diagnosis: (1) Abscess of left arm Home Health Nursing Order: Medical education Signs/symptoms of disease process Wound care and dressing changes Nursing assessment with vital signs I have seen patient Mihai Dalal on 10/08/17. My clinical findings support the need for the requested home health care services because: Impaired cognition/judgement Infection w/ risk of complications I certify that my clinical findings support that this patient is homebound because: Post-op weakness Unsafe to leave home unassisted Need for psychosocial assistance Unable to use public transportation America Nichole DO Oct 08, 2017 11:28 am
[2017-10-08] MEDS ORDERED: SULF1TAB23 PO (11:31)
[2017-10-08] MEDS ORDERED: THIA100 PO (11:31)
[2017-10-08] MEDS ORDERED: OXYC1TAB36 PO ×2 (11:31→11:57)
[2017-10-08] MEDS ORDERED: FOLI1TAB6 PO (11:31)
[2017-10-08] MEDS ORDERED: AMLO5TAB2 PO (11:34)
[2017-10-08 12:00] VITALS: BP 170/106; PULSE 67; RESP 20; TEMP 98.3; O2SAT 99
[2017-10-08] MEDS ORDERED: HYDROmorphone HCL PF 2 MG/ML VIAL IV PUSH ONE (12:00)
[2017-10-08] MEDS ORDERED: PHARMACY ORDERED LAB ONE (14:45)
== END 2017-10-08 14:24 | disposition home health service (06) | DRG 872 ==
LOC: NEDDLT 15:19 → N04B 18:12
PROVIDERS: ADMIT Hospitalist; ATTEND Hospitalist
PROC: 0J9H0ZX Drainage of Left Lower Arm Subcutaneous Tissue and Fascia, Open Approach, Diagnostic (ICD-10-PCS; principal; 2017-10-04 21:50)
DX: A41.9 Sepsis, unspecified organism (principal); L02.414 Cutaneous abscess of left upper limb; L03.114 Cellulitis of left upper limb; F11.10 Opioid abuse, uncomplicated; I10 Essential (primary) hypertension; F17.210 Nicotine dependence, cigarettes, uncomplicated; F12.90 Cannabis use, unspecified, uncomplicated; L73.2 Hidradenitis suppurativa; Z88.0 Allergy status to penicillin; Z88.1 Allergy status to other antibiotic agents
CPT/HCPCS: 10061; 73080; 73201; 76937; 80048; 80053; 80202; 83605; 85007; 85025; 85027; 85652; 87015; 87040; 87070; 87076; 87077; 87102; 87116; 87185; 87186; 87205; 87206; J0330; J1170; J1580; J1650; J2175; J2270; J3010; J3370; J7030; J7040; J7050; Q9967